=== PATIENT | male | born 1950 | race Caucasian/White ===

== ENCOUNTER 2017-06-05 17:18 | Observation (INO) ==
--- NOTE | 2017-06-05 17:55 | Emergency Department Note ---
Disposition Clinical Impression: Right leg swelling Leg pain Qualifiers: Laterality: right Qualified Code(s): M79.604 - Pain in right leg Disposition: Still a Patient Condition: Undetermined Referrals: NO,PCP [Primary Care Provider] - Forms: ED Satisfaction Letter Extremity Problem HPI - General Chief complaint: ED Extremity Problem,Nontraumatic Stated complaint: Blood clot in Right Leg Time Seen by Provider: 06/05/17 17:21 Source: patient Limitations: no limitations Nursing Notes Reviewed: Yes Vital Signs Reviewed: Yes - History of Present Illness HPI Narrative: 67-year-old male history of Factor V Leiden, history of pulmonary embolism and deep vein thrombosis, colon cancer in remission presents with right lower leg pain and swelling. He presents after traveling to [place] and got back yesterday with swelling and pain in his right lower leg worse today. States this feels just like a DVT. Last week he drove to [place] to help his son move from [place] to [place]. He has a history of DVT and PE provoke from his factor V Leiden, this was 5 years ago. 3 years ago he was diagnosed with colon cancer and roughly year ago was discontinued on his warfarin which she had been on for the last 4 years. Patient denies any recent hospitalization, surgery, fracture, injury. He does not smoke. He takes the a baby aspirin every day. Denies any shortness of breath. Denies any chest pain, abdominal pain, nausea vomiting or recent illness. Denies any hemoptysis. He has seen a hematologists in the past. No history of congestive heart failure. There is obvious asymmetrical swelling to the right lower leg however he does point to most of the pain to the anterior arndt. Tenderness but there is some tenderness along the deep vein system. Right lower leg venous Doppler to rule out deep vein thrombosis. Will speak to the hematologists for further treatment and care. Basic labs, PT, PTT ordered. Pain Scale: 3 - Related Data Allergies Allergy/AdvReac Type Severity Reaction Status Date / Time No Known Allergies Allergy Verified 06/05/17 17:36 All systems ED: reviewed and negative except as stated. Constitutional: Denies: fever, chills Cardiovascular: Denies: chest pain Respiratory: Denies: cough, dyspnea Gastrointestinal: Denies: abdominal pain, nausea, vomiting Musculoskeletal: Reports: myalgia (Right lower leg). Denies: back pain Integumentary: Denies: rash, abrasion Neurological: Denies: headache, weakness, numbness Past Medical History - Past Medical History Attestation: Yes The following information was validated with the patient. Source: patient Medical history: Reports: cancer, pulmonary embolus - Social History Smoking Status: Never smoker Alcohol use: Reports: none Drug use: Reports: none Physical Exam - General Limitations: no limitations General appearance: alert, in no apparent distress - Head Head exam: atraumatic, normocephalic, normal inspection - Chest Chest inspection: Present: normal inspection, symmetric chest wall rise, other ( port left chest wall). Absent: rash - Respiratory Respiratory exam: Present: normal lung sounds bilaterally. Absent: respiratory distress, wheezes - Cardiovascular Cardiovascular exam: Present: regular rate, normal rhythm, normal heart sounds. Absent: systolic murmur, diastolic murmur - Abdominal Exam Abdominal exam: Present: soft, Non-Tender, normal bowel sounds. Absent: tenderness, distention, guarding, rebound, rigidity - Extremities Exam Extremities exam: Present: normal inspection, full ROM, normal capillary refill , other (Asymmetrical right lower leg swelling nonpitting). Absent: tenderness , pedal edema, calf tenderness Course - Reevaluation(s) Reevaluation #1: Patient is high risk for deep vein thrombosis. Will get a right lower leg venous Doppler ultrasound. Also speak to the real estate marketing coordinator here on potential treatments if it is positive. In agreement with this plan. Will get basic labs. Time: 18:02 - Consultations Consultation #1: Spoke to Dr. Monroe, the real estate marketing coordinator, would recommend placing the patient on Xarelto and discharge home with follow-up in the office next week if the ultrasound is positive for deep vein thrombosis. Time: 18:04 Vital Signs Temperature 97.9 F 06/05/17 17:33 Pulse Rate 65 06/05/17 17:33 Respiratory Rate 16 06/05/17 17:33 Blood Pressure 149/83 06/05/17 17:33 O2 Sat by Pulse Oximetry 98 06/05/17 17:33 Temperature 97.9 F 06/05/17 17:33 Pulse Rate 65 06/05/17 17:33 Respiratory Rate 16 06/05/17 17:33 Blood Pressure 149/83 06/05/17 17:33 O2 Sat by Pulse Oximetry 98 06/05/17 17:33 Oxygen Delivery Oxygen Delivery Room Air Extremity Problem, Nontraumati - Medical Records Medical records reviewed: Yes I reviewed the patient's medical records. - Lab Data Lab results reviewed: Yes I reviewed the patient's lab results. Result diagrams: 06/05/17 18:34 Lab Results 06/05/17 06/05/17 Range/Units 18:34 18:34 WBC 8.4 (4.3-11.1) K/mcL RBC 4.71 (4.19-5.50) M/mcL Hgb 13.4 (12.9-16.9) g/dL Hct 41.6 (37.5-50.1) % MCV 88.3 (83.0-100.0) fL MCH 28.5 (28.0-33.3) pg MCHC 32.2 (31.6-35.5) g/dL RDW 13.0 (11.5-14.5) % Plt Count 148 (140-400) K/mcL MPV 8.9 L (9.4-12.4) fL Immature Gran % 0.5 (0-4) % Seg Neutrophils % 68.4 % Lymphocytes % 15.6 % Monocytes % 9.7 % Eosinophils % 5.1 % Basophils % 0.7 % Neutrophils # 5.7 (1.6-8.9) K/mcL Lymphocytes # 1.3 (0.6-4.6) K/mcL Monocytes # 0.8 (0.0-1.3) K/mcL Eosinophils # 0.4 (0.0-0.6) K/mcL Basophils # 0.1 (0.0-0.2) K/mcL PT 10.7 (9.4-12.1) Seconds INR 1.0 APTT 78.8 H (26.0-36.0) Seconds S.B.A.R. - S.B.A.R. Situation: Demographics, MOA Background: Presenting Complaint, Relevant PMH, Meds, & Allergies Assessment: Vital Signs, Course and respsone to treatment, Exam Concerns, Patient/Family Expectation, Pertinant Lab Results, Outstanding Labs Recommendation: Barrier(s) to disposition, Recommendation based on pending studies, treatments, or consults S.B.A.R. Report Given to: Dr. Araujo and Dr. Lemon S.B.A.R. Repor Time: 18:55 Attestation Statement - Attestation Attestation: Patient was seen with resident physician. I reviewed the history, physical, assessment and plan, and agree with the findings. I also personally evaluated this patient and had [id number] time with this patient. 67-year-old male presents to the emergency department with chief complaint of right lower extremity swelling. He has a history of factor V Leiden deficiency. But 3 years ago he was diagnosed with colon cancer in his warfarin was stopped. He also has a history of PEs. Patient was recently on a long car trip approximately 10 hours. Symptoms started 2 days afterwards. Patient now has complaint of pain in the posterior thigh on the right lower extremity the posterior calf and reluctantly with swelling from the knee down. Denies chest pain or shortness of breath. On examination vital signs are stable. ENT is unremarkable. Heart and lungs normal. Extremities patient has swelling and tenderness in the right lower extremity. There is no gross deformity. Neurologically intact. ED course we spoke with hematology to go over treatment options with the patient does not fact have a DVT. They recommended doing Xalarato. We will get the formal ultrasound tests here in the emergency department and treat according to the findings. Patient was signed out to the nighttime team for final disposition. He was in stable condition at the time of transfer care at 7 PM.
[2017-06-05 18:42] LABS: Basophils # 0.1 K/mcL (0.0-0.2); Basophils % 0.7 %; Eosinophils # 0.4 K/mcL (0.0-0.6); Eosinophils % 5.1 %; Hematocrit 41.6 % (37.5-50.1); Hemoglobin 13.4 g/dL (12.9-16.9); Immature Granulocytes % 0.5 % (0-4); Lymphocytes # 1.3 K/mcL (0.6-4.6); Lymphocytes % 15.6 %; Mean Corpuscular HGB Conc 32.2 g/dL (31.6-35.5); Mean Corpuscular Hemoglobin 28.5 pg (28.0-33.3); Mean Corpuscular Volume 88.3 fL (83.0-100.0); Mean Platelet Volume 8.9 fL (9.4-12.4); Monocytes # 0.8 K/mcL (0.0-1.3); Monocytes % 9.7 %; Neutrophils # 5.7 K/mcL (1.6-8.9); Platelet Count 148 K/mcL (140-400); Red Blood Count 4.71 M/mcL (4.19-5.50); Segmented Neutrophils % 68.4 %
[2017-06-05 18:49] LABS: Prothrombin Time 10.7 Seconds (9.4-12.1)
[2017-06-05 18:51] LABS: Activated Partial Thrombo Time 78.8 Seconds (26.0-36.0)
[2017-06-05 18:55] LABS: BUN/Creatinine Ratio 10 (6-26); Blood Urea Nitrogen 11 mg/dL (8-26); Calcium 8.9 mg/dL (8.6-10.8); Carbon Dioxide 26 mEq/L (19-29); Chloride 107 mEq/L (98-109); Glucose 86 mg/dL (70-99); Osmolality,Calculated 287 (280-300); Sodium 139 mEq/L (136-145); eGFR For African Americans > 60 (> 60); eGFR For Non-African Americans > 60 (> 60)
[2017-06-05] MEDS ORDERED: Heparin 25,000 UNIT/500 ML D5W 25,000 UNIT/500 ML MLS IVC SCH ×2 (20:00→20:45)
[2017-06-05] MEDS ORDERED: *HR* Heparin 5,000 UNIT/ML VIAL IVP ONE (20:31)
--- NOTE | 2017-06-05 20:33 | Emergency Department Note ---
Disposition Clinical Impression: Right leg swelling, DVT (deep venous thrombosis) Leg pain Qualifiers: Laterality: right Qualified Code(s): M79.604 - Pain in right leg Disposition: Admitted As Inpatient Condition: Good Time of Disposition: 21:08 General Adult HPI - General Chief complaint: ED Extremity Problem,Nontraumatic Stated complaint: Blood clot in Right Leg Time Seen by Provider: 06/05/17 17:21 Source: patient Mode of arrival: ambulatory Limitations: no limitations Nursing Notes Reviewed: Yes Vital Signs Reviewed: Yes - History of Present Illness Pain Scale: 3 - Related Data Allergies Allergy/AdvReac Type Severity Reaction Status Date / Time No Known Allergies Allergy Verified 06/05/17 17:36 Constitutional: Denies: fever, chills Cardiovascular: Denies: chest pain Respiratory: Denies: cough, dyspnea Gastrointestinal: Denies: abdominal pain, nausea, vomiting Musculoskeletal: Reports: myalgia (Right lower leg). Denies: back pain Integumentary: Denies: rash, abrasion Neurological: Denies: headache, weakness, numbness Past Medical History - Past Medical History Medical history: Reports: cancer, pulmonary embolus - Social History Smoking Status: Never smoker Alcohol use: Reports: none Drug use: Reports: none Physical Exam - General Limitations: no limitations General appearance: alert, in no apparent distress Course - Reevaluation(s) Reevaluation #1: Patient received in sign out. Has a history of extensive DVT and PE, which actually caused him to code several years ago. History of colon cancer that was resected 4 years ago. Has been on Coumadin for the last 3 years but was taken off that one year ago. Presenting today after recent trip to [place], [place], which she states she is in the car for about [address] Complaining of extensive swelling to his right leg. States this is the exact type of swelling. He had previously with his DVT. No chest pain or shortness of breath, no fevers syncope. Labs were ordered by the daytime team. An ultrasound was pending. Ultrasound showed an extensive DVT extending from the proximal femoral vein down to the popliteal fossa. The other resident had already spoken with hematology, Dr. Monroe, so I called him back. He thought that the patient may be able to go home on Xarelto however, due to his history of nearly fatal pulmonary embolism and extensive clot burden. I think it would be more prudent to admit the patient to the hospitalist service for further testing to fully evaluate his clot burden to determine if he may need an IVC filter. Patient was agreeable with this. Spoke with the admitting hospitalist , and he did request a repeat PTT and to start heparin. After this was drawn. Patient remains hemodynamically stable. Time: 20:33 Vital Signs Temperature 97.9 F 06/05/17 17:33 Pulse Rate 65 06/05/17 17:33 Respiratory Rate 16 06/05/17 17:33 Blood Pressure 149/83 06/05/17 17:33 O2 Sat by Pulse Oximetry 98 06/05/17 17:33 Temperature 97.9 F 06/05/17 17:33 Pulse Rate 65 06/05/17 17:33 Respiratory Rate 16 06/05/17 17:33 Blood Pressure 149/83 06/05/17 17:33 O2 Sat by Pulse Oximetry 98 06/05/17 17:33 Oxygen Delivery Oxygen Delivery Room Air Medical Decision Making - Lab Data Lab results reviewed: Yes I reviewed the patient's lab results. Result diagrams: 06/05/17 18:34 06/05/17 18:34 Lab Results 06/05/17 06/05/17 06/05/17 Range/Units 18:34 18:34 18:34 WBC 8.4 (4.3-11.1) K/mcL RBC 4.71 (4.19-5.50) M/mcL Hgb 13.4 (12.9-16.9) g/dL Hct 41.6 (37.5-50.1) % MCV 88.3 (83.0-100.0) fL MCH 28.5 (28.0-33.3) pg MCHC 32.2 (31.6-35.5) g/dL RDW 13.0 (11.5-14.5) % Plt Count 148 (140-400) K/mcL MPV 8.9 L (9.4-12.4) fL Immature Gran % 0.5 (0-4) % Seg Neutrophils % 68.4 % Lymphocytes % 15.6 % Monocytes % 9.7 % Eosinophils % 5.1 % Basophils % 0.7 % Neutrophils # 5.7 (1.6-8.9) K/mcL Lymphocytes # 1.3 (0.6-4.6) K/mcL Monocytes # 0.8 (0.0-1.3) K/mcL Eosinophils # 0.4 (0.0-0.6) K/mcL Basophils # 0.1 (0.0-0.2) K/mcL PT 10.7 (9.4-12.1) Seconds INR 1.0 APTT 78.8 H (26.0-36.0) Seconds Sodium 139 (136-145) mEq/L Potassium 4.0 (3.5-4.5) mEq/L Chloride 107 (98-109) mEq/L Carbon Dioxide 26 (19-29) mEq/L BUN 11 (8-26) mg/dL Creatinine 1.08 (0.72-1.25) mg/dL Est GFR ( Amer) > 60 (> 60) Est GFR (Non-Af Amer) > 60 (> 60) BUN/Creatinine Ratio 10 (6-26) Glucose 86 (70-99) mg/dL Calculated Osmolality 287 (280-300) Calcium 8.9 (8.6-10.8) mg/dL Troponin I (0-0.03) ng/mL B-Natriuretic Peptide (0-100) pg/mL 06/05/17 06/05/17 Range/Units 18:34 18:34 WBC (4.3-11.1) K/mcL RBC (4.19-5.50) M/mcL Hgb (12.9-16.9) g/dL Hct (37.5-50.1) % MCV (83.0-100.0) fL MCH (28.0-33.3) pg MCHC (31.6-35.5) g/dL RDW (11.5-14.5) % Plt Count (140-400) K/mcL MPV (9.4-12.4) fL Immature Gran % (0-4) % Seg Neutrophils % % Lymphocytes % % Monocytes % % Eosinophils % % Basophils % % Neutrophils # (1.6-8.9) K/mcL Lymphocytes # (0.6-4.6) K/mcL Monocytes # (0.0-1.3) K/mcL Eosinophils # (0.0-0.6) K/mcL Basophils # (0.0-0.2) K/mcL PT (9.4-12.1) Seconds INR APTT (26.0-36.0) Seconds Sodium (136-145) mEq/L Potassium (3.5-4.5) mEq/L Chloride (98-109) mEq/L Carbon Dioxide (19-29) mEq/L BUN (8-26) mg/dL Creatinine (0.72-1.25) mg/dL Est GFR ( Amer) (> 60) Est GFR (Non-Af Amer) (> 60) BUN/Creatinine Ratio (6-26) Glucose (70-99) mg/dL Calculated Osmolality (280-300) Calcium (8.6-10.8) mg/dL Troponin I 0.00 (0-0.03) ng/mL B-Natriuretic Peptide 92 (0-100) pg/mL Attestation Statement - Attestation Attestation: I personally interviewed and examined this patient and my medical decision- making was reviewed with the ED Resident Physician, Dr. Araujo. I agree with the documented findings, disposition and treatment plan as described except to the extent set forth below. Patient is a 67-year-old white female with a history of prior DVT and PE who presents to the emergency department with a swollen and painful right lower extremity following a [address] trip that he recently had. Patient states he had been on Coumadin but has been taken off it by his cancer Drs. approx one year ago and has not been restarted. Pt states he was treated for colon cancer approximately one year ago and his doctors at that time discontinued his Coumadin. Patient is complaining of some mild right posterior knee pain as well as right lower anterior leg pain as well as just diffuse swelling of the entire right lower extremity compared to left. There is no overlying skin changes. Patient denies any history of falls or trauma. Patient denies any form of chest pain pressure or heaviness, no shortness of breath, no lightheadedness or syncope. Patient arrives with stable vital signs and in no acute distress on arrival. Patient was signed out to us by Dr. Sanchez who had initially evaluated the patient, placed an order for right lower extremity venous Doppler, and some baseline labs have been ordered. They had arty spoken to the oncologist avionics test technician tonight and discussed possible outpatient management with restarting a blood thinner if his ultrasound was positive. I agree with the patient's physical exam is documented. Patient's ultrasound showed extensive clot burden to the right lower extremity. Patient remained hemodynamically stable and asymptomatic in the ED. Concerned because patient's history involved prior PE which resulted in cardiac arrest approximately 3 years ago. Patient has a very large clot burden in a high likelihood for propagation. I do not feel he is appropriate for discharge home and while initiate heparin IV here and admit him for further evaluation and management of RLE DVT. Additional labs were ordered and pending at this time patient remains hemodynamically stable and resting comfortably at bedside and agrees with plan for admission. Patient was accepted by the hospitalist Dr. Mar cardenas at approximately 2015.
[2017-06-05] MEDS: *HR* Heparin 5,000 UNIT/ML VIAL IVP ONE ×2 (22:34→22:35)
[2017-06-06] MEDS ORDERED: Naloxone 0.4 MG/ML INJ IVP PRN (01:42)
[2017-06-06] MEDS ORDERED: Ondansetron 4 MG/2 ML VIAL IVP PRN (01:42)
[2017-06-06] MEDS ORDERED: Acetaminophen 325 MG TABLET PO PRN (01:42)
--- NOTE | 2017-06-06 02:12 | Internal Med History&Physical ---
Date of Encounter: 06/06/17 Time of Encounter: 01:05 Assessment and Plan (1) DVT (deep venous thrombosis) Current visit: Yes Status: Acute 1. Patient placed on heparin drip for now due to extensive clot burden and prior history of life-threatening saddle PE. 2. Convert to oral anticoagulation prior to discharge. 3. Consult HEM/ONC for guidance/recommendations. 4. Consider IVC filter placement -- discussed with patient and . 5. Recommend A-port removal in the near future if he no longer needs it for chemotherapy. Qualifiers: DVT location: lower extremity Affected thrombotic vein of extremity: femoral Chronicity: acute Laterality: right Qualified Code(s): I82.411 - Acute embolism and thrombosis of right femoral vein (2) Colon cancer Current visit: Yes Status: Chronic 1. Pt S/P resection and chemotherapy. 2. Pt follows with oncology in [place]. Recommend close follow up. Qualifiers: Colon location: unspecified part of colon Qualified Code(s): C18.9 - Malignant neoplasm of colon, unspecified (3) DVT prophylaxis Current visit: Yes Status: Acute 1. On heparin drip. Internal Medicine - H&P: HPI Chief complaint: right leg swelling Admitted From: Emergency Dept Plans for Post Hospital Care: Home History of present illness: Mr. Holt is a 67 year old male who presents with complaints of right leg swelling, cramping, and pain. Symptoms started within last 24 hours. Because of prior life-threatening pulmonary embolus, patient came to the ER immediately upon noticing the above symptoms. He and his returned to [place] from extended drive from [place] the other day. They spend a majority of the time in [place], but they partially reside in [place] as well. Workup in the ER revealed the patient had extensive clot from his right groin down to his ankle. Due to the extent of his clot, ER staff did not feel comfortable sending him home and requested admission for heparinization. I agreed and accepted the admission. Upon my assessment of the patient, patient is resting in bed comfortably. He and his confirm the above history. He informs me that he had a life- threatening saddle pulmonary embolus about 5 years ago in [place]. He later was found to have colon cancer for which he underwent resection and chemotherapy. He has been cancer free since then. He also informs me that he has factor V Leiden gene mutation. He and his travel by motor vehicle to [place] and back multiple times throughout the year. He does stop frequently on the road to ambulate. Nonetheless, he has now sustained a second non- provoked thrombus. I had an extensive talk with patient and his , and given the life-threatening nature of his first PE and now his recurrent DVT, I recommend lifelong anticoagulation. Additionally, I encouraged him to discuss with his PCP and oncologist to consider IVC filter placement. They are not interested at this time but they will consider and discuss further once the returned back to [place]. Past Med Surg Social Fam HX - Past Medical History Attestation: Yes The following information was validated with the patient. Source: patient, old records reviewed Medical history: cancer (colon), pulmonary embolus Psychiatric history: no psych history - Past Surgical History Surgical History: colectomy (partial) - Social History Smoking Status: Never smoker Alcohol use: rarely Drug use: none Occupational status: retired Current living situation: Home, With Family Activity Level: Independent ambulation, Very active Recent Out of Country Travel Within the Last 8 Weeks: No - Family History Mother Living Status: Father Living Status: - Additional Family History Additional family history: No known FH clots Internal Medicine - H&P: Meds Aspirin 325 mg PO DAILY 06/06/17 [History] Imodium PO TID 06/06/17 [History] Multivitamin [Multivitamins] PO 06/06/17 [History] Allergies No Known Allergies Allergy (Verified 06/05/17 17:36) - Constitutional Constitutional: no chills, no fever(s) - EENT Eyes: no blurry vision, no change in vision Ears: no ear pain, no tinnitus Nose, mouth and throat: no nasal congestion, no sinus pain, no sore throat - Cardiovascular Cardiovascular ROS IM: no chest pain, no dyspnea, no dyspnea on exertion, no edema, no palpitations - Respiratory Respiratory: no cough, no dyspnea, no hemoptysis - Gastrointestinal Gastrointestinal: no abdominal pain, no diarrhea, no hematemesis, no hematochezia, no melena, no vomiting - Genitourinary Genitourinary ROS male: no dysuria, no flank pain, no hematuria - Musculoskeletal Musculoskeletal ROS IM: muscle cramps, myalgias, no arthralgias, no atrophy - Integumentary Integumentary IM: no rash, no jaundice - Neurological Neurological ROS: no dizziness, no focal weakness, no frequent falls - Psychiatric Psychiatric: no anxiety, no depression - Endocrine Endocrine IM: no polydipsia, no polyuria - Hematologic/Lymphatic Hematologic/Lymphatic: no lymphadenopathy - Constitutional Vitals: Temp Pulse Resp BP Pulse Ox 97.9 F 64 16 119/74 93 06/06/17 00:10 06/06/17 00:10 06/06/17 00:10 06/06/17 00:10 06/06/17 00:10 General appearance: Present: cooperative, A&O X 3, pleasant, answers questions appropriately - Head Head exam: Present: atraumatic, normal inspection - Eye Eye exam: Present: EOMI, normal appearance, PERRL. Absent: scleral icterus Pupils: Present: normal accommodation - ENT ENT exam: Present: mucous membranes moist, normal exam - Neck Neck exam general surgery: Present: full ROM, supple. Absent: lymphadenopathy, tenderness - Respiratory Respiratory exam: Present: CTAB. Absent: chest wall tenderness, rales, rhonchi , wheezes - Cardiovascular Cardiovascular exam: Present: RRR, +S1, +S2. Absent: systolic murmur - GI/Abdominal GI/Abdominal exam: Present: normal bowel sounds, soft. Absent: hepatomegaly, mass, splenomegaly - Extremities Exam Extremities exam: Present: calf tenderness (right calf), normal capillary refill , tenderness (right calf/leg) Additional comments: right leg circumference > left leg - Back Exam Back exam: Absent: CVA tenderness (L), CVA tenderness (R) - Neurological Exam Neurological exam: Present: alert, CN II-XII intact, oriented X3, no focal deficits - Psychiatric Psychiatric exam: Present: normal affect, normal mood - Skin Skin exam: Present: dry, warm. Absent: rash Internal Med - H&P Results - Labs CBC & Chem 7: 06/05/17 18:34 06/05/17 18:34 - VTE Reasons for not Prescribing Prophylaxis: Not indicated-Anticoagulated or INR therapeutic
[2017-06-06 03:29] LABS: Basophils # 0.1 K/mcL (0.0-0.2); Basophils % 0.6 %; Eosinophils # 0.5 K/mcL (0.0-0.6); Eosinophils % 5.5 %; Hematocrit 40.8 % (37.5-50.1); Hemoglobin 12.9 g/dL (12.9-16.9); Immature Granulocytes % 0.5 % (0-4); Immature Platelets 1.7 % (1.1-6.1); Lymphocytes # 1.5 K/mcL (0.6-4.6); Lymphocytes % 16.8 %; Mean Corpuscular HGB Conc 31.6 g/dL (31.6-35.5); Mean Corpuscular Hemoglobin 28.1 pg (28.0-33.3); Mean Corpuscular Volume 88.9 fL (83.0-100.0); Mean Platelet Volume 8.7 fL (9.4-12.4); Monocytes # 0.9 K/mcL (0.0-1.3); Monocytes % 9.9 %; Neutrophils # 5.8 K/mcL (1.6-8.9); Platelet Count 165 K/mcL (140-400); Red Blood Count 4.59 M/mcL (4.19-5.50); Segmented Neutrophils % 66.7 %
[2017-06-06 03:39] LABS: BUN/Creatinine Ratio 13 (6-26); Blood Urea Nitrogen 14 mg/dL (8-26); Carbon Dioxide 28 mEq/L (19-29); Chloride 109 mEq/L (98-109); Glucose 95 mg/dL (70-99); Osmolality,Calculated 292 (280-300); Sodium 141 mEq/L (136-145); eGFR For African Americans > 60 (> 60); eGFR For Non-African Americans > 60 (> 60)
--- NOTE | 2017-06-06 09:37 | Event Note ---
<ElmaHarjinder - Last Filed: 06/06/17 14:43> Date of Encounter: 06/06/17 Time of Encounter: 09:33 Patient seen and examined, patient reports continued right leg cramping and is currently on heparin drip. Patient denies fever, palpitations, chest pain, or difficulty breathing. Patient reports mild dull left flank pain that is nontender to palpation. He is in no acute distress and has no CVA tenderness on exam. Case discussed with Hematology/oncology Dr. Monroe this morning who recommends outpatient treatment with Xarelto at this time. Patient reports stopping Coumadin anticoagulation per oncologist's recommendation in [place] and has been on 325 mg of aspirin daily. He is able to ambulate without difficulty and does not want IVC filter at this time. is at bedside and inquiring about discharge planning. Will stop heparin and initiate Xarelto treatment.. Patient to follow up with manager product marketing in 1 week Laboratory Results WBC 8.7 K/mcL (4.3-11.1) 06/06/17 03:15 RBC 4.59 M/mcL (4.19-5.50) 06/06/17 03:15 Hgb 12.9 g/dL (12.9-16.9) 06/06/17 03:15 Hct 40.8 % (37.5-50.1) 06/06/17 03:15 MCV 88.9 fL (83.0-100.0) 06/06/17 03:15 MCH 28.1 pg (28.0-33.3) 06/06/17 03:15 MCHC 31.6 g/dL (31.6-35.5) 06/06/17 03:15 RDW 13.0 % (11.5-14.5) 06/06/17 03:15 Plt Count 165 K/mcL (140-400) 06/06/17 03:15 MPV 8.7 fL (9.4-12.4) L 06/06/17 03:15 Immature Gran % 0.5 % (0-4) 06/06/17 03:15 Seg Neutrophils % 66.7 % 06/06/17 03:15 Lymphocytes % 16.8 % 06/06/17 03:15 Monocytes % 9.9 % 06/06/17 03:15 Eosinophils % 5.5 % 06/06/17 03:15 Basophils % 0.6 % 06/06/17 03:15 Neutrophils # 5.8 K/mcL (1.6-8.9) 06/06/17 03:15 Lymphocytes # 1.5 K/mcL (0.6-4.6) 06/06/17 03:15 Monocytes # 0.9 K/mcL (0.0-1.3) 06/06/17 03:15 Eosinophils # 0.5 K/mcL (0.0-0.6) 06/06/17 03:15 Basophils # 0.1 K/mcL (0.0-0.2) 06/06/17 03:15 Immature Plt Fraction 1.7 % (1.1-6.1) 06/06/17 03:15 PT 10.7 Seconds (9.4-12.1) 06/05/17 18:34 INR 1.0 06/05/17 18:34 APTT 63.9 Seconds (26.0-36.0) H D 06/06/17 04:15 Sodium 141 mEq/L (136-145) 06/06/17 03:15 Potassium 4.0 mEq/L (3.5-4.5) 06/06/17 03:15 Chloride 109 mEq/L (98-109) 06/06/17 03:15 Carbon Dioxide 28 mEq/L (19-29) 06/06/17 03:15 BUN 14 mg/dL (8-26) 06/06/17 03:15 Creatinine 1.07 mg/dL (0.72-1.25) 06/06/17 03:15 Est GFR ( Amer) > 60 (> 60) 06/06/17 03:15 Est GFR (Non-Af Amer) > 60 (> 60) 06/06/17 03:15 BUN/Creatinine Ratio 13 (6-26) 06/06/17 03:15 Glucose 95 mg/dL (70-99) 06/06/17 03:15 Calculated Osmolality 292 (280-300) 06/06/17 03:15 Calcium 9.0 mg/dL (8.6-10.8) 06/06/17 03:15 Troponin I 0.00 ng/mL (0-0.03) 06/05/17 18:34 B-Natriuretic Peptide 92 pg/mL (0-100) 06/05/17 18:34 Specimen Rejected Contaminated 06/06/17 03:15 06/05/17 19:57 - Vascular Preliminary by Buddy Alves Acct Num: [id number] : 1950 Patient Age: 67 Venous ultrasound appears to show DVT in the SFV, POP V, Gastoc V and Peroneal V. Superficial system appears patent. Initialized on 06/05/17 19:57 - END OF NOTE <Hadley Olvera - Last Filed: 06/06/17 14:56> Date of Encounter: 06/06/17 Please see discharge summary of this same date.
[2017-06-06] MEDS: *HR* Rivaroxaban 10 MG TABLET PO SCH ×2 (13:27→13:52)
--- NOTE | 2017-06-06 14:22 | Discharge Summary ---
<Harjinder Wills - Last Filed: 06/06/17 14:43> Date of Encounter: 06/06/17 Time of Encounter: 14:20 - Discharge Diagnosis (1) DVT (deep venous thrombosis) Priority: Primary Status: Acute Comments: Patient reports right leg cramping and is currently on heparin drip. Patient denies fever, palpitations, chest pain, or difficulty breathing. He is able to ambulate without difficulty and does not want IVC filter at this time. is at bedside and inquiring about discharge planning. Case discussed with Hematology/oncology Dr. Monroe this morning who recommends outpatient treatment with Xarelto at this time. Patient reports stopping Coumadin anticoagulation per oncologist's recommendation in [place] and has been on 325 mg of aspirin daily. Will initiate Xarelto therapy discontinue heparin, and recommend follow up with PCP and hematology Qualifiers: DVT location: lower extremity Affected thrombotic vein of extremity: femoral Chronicity: acute Laterality: right Qualified Code(s): I82.411 - Acute embolism and thrombosis of right femoral vein (2) H/O colon cancer, stage III Priority: Secondary Status: Acute Comments: continue outpatient monitoring. - Discharge Medications Prescriptions: Rivaroxaban [Xarelto] 20 mg PO DAILY #30 tablet Rivaroxaban [Xarelto] 15 mg PO TID #21 tab Home Medications: Acetaminophen [Tylenol] 650 mg PO Q6HR PRN tab 06/06/17 [Rx] Docusate [Colace] 100 mg PO BID PRN 06/06/17 [Rx] Loperamide [Imodium] 2 mg PO TID 06/06/17 [History] Rivaroxaban [Xarelto] 15 mg PO TID #21 tab 06/06/17 [Rx] Rivaroxaban [Xarelto] 20 mg PO DAILY #30 tablet 06/06/17 [Rx] Allergies/Adverse Reactions: Allergies No Known Allergies Allergy (Verified 06/05/17 17:36) Date of admission: 06/05/17 20:23 Primary care physician: PCP NO Consults: 06/06/17 01:45 Consult to Physician [CONS] Routine Consulting Provider: Gian Monroe Reason for Consult: DVT; AC guidance Call Completed: No 06/06/17 09:56 Consult to Parts Sales Advisor [CONS] Routine Reason for SW Consult: Patient needs outpatient treatment with Xarelto, please provide options/ coupon Discharging clinician: Hadley Olvera Anticipated date of discharge: 06/06/17 - Patient Status Disposition: Home, Self-Care Condition: Good Overall status at discharge: patient is progressing back to baseline - Discharge Instructions Instructions: Rivaroxaban (By mouth) Follow Up With: Gian Monroe MD [Partnered Physician] - Harjinder Wills DO [Resident] - Additional Instructions: start taking Xarelto 15 mg every 8 hours for the next 3 weeks then switched to Xarelto 20 mg daily indefinitely. Follow-up with hematology/ Dr. Monroe in 1 week. Avoid long trips and strenuous activity for the next 4 weeks. - Diet and Activity Activity: increase activity as tolerated Diet: regular diet Hospital course: Mr. Holt is a 67 year old male who presents complaining of right leg swelling, cramping, and pain. Symptoms started within last 24 hours. 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 He and his returned to [place] from extended drive from [place] the other day. They spend a majority of the time in [place], but they partially reside in [place] as well. Workup in the ER revealed the patient had extensive clot from his right groin down to his ankle. Due to the extent of his clot, ER staff did not feel comfortable sending him home and requested admission for heparinization. Of note, he was previouslyfound to have colon cancer for which he underwent resection and chemotherapy3 years ago. He has been cancer free since then. He also informs me that he has factor V Leiden gene mutation. He and his travel by motor vehicle to [place] and back multiple times throughout the year. He does stop frequently on the road to ambulate. Nonetheless, he has now sustained a second non-provoked thrombus. Case discussed with Hematology/ oncology Dr. Monroe who recommends outpatient treatment with Xarelto at this time. Patient reports stopping Coumadin anticoagulation per oncologist's recommendation in [place] and has been on 325 mg of aspirin daily. 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 Xarelto therapy was initiated and patient instructed to follow up with PCP and hematology in 1 week. Additionally, I encouraged him to discuss with his PCP and oncologist to consider IVC filter placement. They are not interested at this time but they will consider and discuss further once the returned back to [place]. - Time Spent with Patient Total time spent providing and/or coordinating discharge services: - Constitutional Vitals: Temp Pulse Resp BP Pulse Ox 98.2 F 65 16 116/72 96 06/06/17 10:29 06/06/17 10:29 06/06/17 10:29 06/06/17 10:29 06/06/17 10:29 General appearance: Present: cooperative, A&O X 3, pleasant, no acute distress, answers questions appropriately. Absent: obese - Head Head exam: Present: atraumatic, normocephalic - Eye Eye exam: Present: PERRL, conjuntiva pink, sclera anicteric Pupils: Present: PERRL - ENT ENT exam: Present: mucous membranes moist, normal oropharynx - Neck Neck exam general surgery: Present: supple, trachea midline. Absent: lymphadenopathy - Respiratory Respiratory exam: Present: CTAB. Absent: accessory muscle use, rales, rhonchi, wheezes - Cardiovascular Cardiovascular exam: Present: RRR, +S1, +S2. Absent: diastolic murmur, gallop, rubs, systolic murmur - GI/Abdominal GI/Abdominal exam: Present: normal bowel sounds, soft, no peritoneal signs. Absent: distended, tenderness - Extremities Exam Extremities exam: Present: tenderness, warm, radial pulses palpable and symetrical. Absent: calf tenderness, cyanotic, pedal edema Additional comments: right calf/leg tenderness to palpation, pulses intact, warm, no ecchymosis - Neurological Exam Neurological exam: Present: CN II-XII intact, oriented X3, no focal deficits. Absent: pronater drift, facial droop, speech deficit - Psychiatric Psychiatric exam: Present: normal affect, normal mood - Skin Skin exam: Present: dry, intact - VTE Reasons for not Prescribing Prophylaxis: Not indicated-Anticoagulated or INR therapeutic <Hadley Olvera - Last Filed: 06/06/17 15:13> Date of Encounter: 06/06/17 - Discharge Diagnosis (1) DVT (deep venous thrombosis) Status: Acute Qualifiers: DVT location: lower extremity Affected thrombotic vein of extremity: femoral Chronicity: acute Laterality: right Qualified Code(s): I82.411 - Acute embolism and thrombosis of right femoral vein (2) Leg pain Priority: Secondary Status: Acute Qualifiers: Laterality: right Qualified Code(s): M79.604 - Pain in right leg (3) H/O colon cancer, stage III Status: Acute (4) Factor V Leiden Priority: Secondary Status: Chronic Date of admission: 06/05/17 20:23 Primary care physician: PCP NO Consults: 06/06/17 01:45 Consult to Physician [CONS] Routine Consulting Provider: Gian Monroe Reason for Consult: DVT; AC guidance Call Completed: No 06/06/17 09:56 Consult to Parts Sales Advisor [CONS] Routine Reason for SW Consult: Patient needs outpatient treatment with Xarelto, please provide options/ coupon Hospital course: Mr. Holt is a 67 year old male - Time Spent with Patient Total time spent providing and/or coordinating discharge services: 28min - Constitutional Vitals: Temp Pulse Resp BP Pulse Ox 97.7 F 66 16 117/75 94 06/06/17 14:37 06/06/17 14:37 06/06/17 14:37 06/06/17 14:37 06/06/17 14:37 - Attending Attestation I examined this patient and my medical decision-making was reviewed with the Resident Physician on 06/06/17. I agree with the documented findings, disposition and treatment plan as described except to the extent set forth below. Mr. Holt has been admitted for acute RLE DVT. He has been placed on IV heparin drip. PO Xarelto started today. He is able to ambulate. He is afebrile and vitals are stable. Exam Alert. Comfortable Heart reg No wheeze Some arthritis of bilateral knee caps. Plan D/C home today on Xarelto Follow with heme and PCP.
[2017-06-06 14:38] VITALS: BP 117/75
--- NOTE | 2017-06-07 13:50 | Venous Imaging Report ---
LE Venous Duplex Patient Name:Josué Holt Order Number:[id number] Procedure Date:06/05/2017 Date:1950ge:67 yrs Gender:Male Location:[facility] ED Room #: Inspector Air Carrier:Franco Alves RDCS Referring MD:Tarik Stevens DO emergency operator:None Reading MD:Lyle Gracia MD Primary Indications:Right leg pain Secondary Indications: Risk Factors Yes/No ASA Yes Hx of DVT Yes Hx of Chemotherapy Yes Impressions: Acute deep venous thrombosis is present from the right superficial femoral through tibial veins. Normal right lower extremity superficial venous exam. Normal contralateral common femoral vein. Recommendations: After imaging the patient returned to their room. Critical findings reported to Dr. Stevens in person by Franco Alves RDCS. Findings Venous Duplex Results: Right: Venous imaging of the lower extremity reveals full patency and normal vessel compressibility of the right distal iliac, right common femoral, right posterior tibial, right great saphenous and right lesser saphenous. Doppler signals in the evaluated veins were normal. There is an acute occlusive thrombus seen in the right superficial femoral. It demonstrates an incompressible vein. Flow was absent and it did not augment. There is an acute occlusive thrombus seen in the right popliteal. It demonstrates an incompressible vein. Flow was absent and it did not augment. There is an acute occlusive thrombus seen in the right peroneal. It demonstrates an incompressible vein. Flow was absent and it did not augment. There is an acute occlusive thrombus seen in the right gastrocnemius. It demonstrates an incompressible vein. Flow was absent and it did not augment. Left: Venous imaging of the lower extremity reveals full patency and normal vessel compressibility of the left common femoral. Doppler signals in the evaluated veins were normal. Prior Study: No prior study available for comparison. Lower Extremity Venous Duplex Side Vein Compress Spontaneous Flow Augment Diameter (cm) Depth (cm) Right Distal Iliac Normal Yes Phasic Yes Right Common Femoral Normal Yes Phasic Yes Right Superficial Femoral None no Absent no Right Popliteal None no Absent no Right Posterior Tibial Normal Yes Phasic Yes Right Peroneal None no Absent no Right Gastrocnemius None no Absent no Right Great Saphenous Normal Yes Phasic Yes Right Lesser Saphenous Normal Yes Phasic Yes Left Common Femoral Normal Yes Phasic Yes Updated by Lyle Gracia MD on 06/07/2017 1:44:50 PM electronically signed on 06/07/2017 1:45:25 PM with status of Final
== END 2017-06-06 15:55 | disposition home or self-care (01) ==
LOC: EMEROO 17:18 → 3ANU 17:18 → SUATTDRO 20:23 → 3ANU 22:45
PROVIDERS: ADMIT Pediatrics; ATTEND Internal Medicine